=== PATIENT | male | born 1980 | race Two or more races ===

== ENCOUNTER 2021-12-13 13:58 | Emergency (ER) | payer MEDICAID, OTHER ==
[~2021-12-13] VITALS: Ht 172.7 cm; Wt 86.2 kg
[2021-12-13] MEDS ORDERED: SODIUM CHLORIDE 0.9% 1,000 ML IV ONE (14:45)
[2021-12-13] MEDS ORDERED: NALOXONE HCL 1MG/ML 2ML SYRINGE ONE (15:21)
[2021-12-13] MEDS ORDERED: NALOXONE HCL 1MG/ML 2ML SYRINGE IV ONE (15:30)
[2021-12-13 16:17] LABS: Salicylate < 1.7 mg/dL (2.8-20.0)
[2021-12-13 16:22] LABS: Acetaminophen < 2.0 ug/mL (10-30)
[2021-12-13 17:53] LABS: Alcohol, Urine < 3.0 mg/dL (0-10); Amphetamine Screen, Urine POSITIVE (NEGATIVE); Barbiturate Scree,Urine NEGATIVE (NEGATIVE); Benzodiazephine Screen, Urine NEGATIVE (NEGATIVE); Cannabinoid Screen, Urine NEGATIVE (NEGATIVE); Cocaine Screen, Urine NEGATIVE (NEGATIVE); Opiate Scree,Urine NEGATIVE (NEGATIVE); Phencyclidine Screen, Urine NEGATIVE (NEGATIVE)
[2021-12-14 01:00] VITALS: BP 112/73
== END 2021-12-14 01:29 | disposition left against medical advice (07) ==
LOC: EDBD 13:58 → ER 13:58
DX: G93.41 Metabolic encephalopathy (principal); F19.90 Other psychoactive substance use, unspecified, uncomplicated
CPT/HCPCS: 36415; 80307; 80320; 80329; 93005; 96361; 96374; 99285; J2310; J7030